=== PATIENT | male | born 1950 ===

== ENCOUNTER 2023-09-03 07:00 | Day surgery (SDC) | payer OTHER ==
[~2023-09-03 07:00] MED LIST: ADULT LOW DOSE81 M1; AVAPRO300 MG PO; CALCIO; OMEGA 3; UROXATRAL10 MG PO; VITAMIN C; VYTORIN; ZINC
[2023-09-03] MEDS ORDERED: TYLENOL ARTHRI650 MG PO (09:46)
[2023-09-03] MEDS ORDERED: MIRALAX17 GM PO (09:46)
[2023-09-03] MEDS ORDERED: KETO10TA2 PO (09:46)
[2023-09-03] MEDS ORDERED: TRAMADOL HCL50 MG PO (09:46)
== END 2023-09-03 14:00 | disposition home or self-care (01) ==
LOC: CIR.AMB 07:00
PROVIDERS: ATTEND Surgery
DX: K42.0 Umbilical hernia with obstruction, without gangrene (principal); I10 Essential (primary) hypertension; Z20.822 Contact with and (suspected) exposure to COVID-19
CPT/HCPCS: 49594; C1781